=== PATIENT | male | born 1985 | race Caucasian/White ===

== ENCOUNTER 2023-03-20 18:35 | Emergency (ER) | payer MEDICAID ==
[~2023-03-20] VITALS: Ht 170.2 cm; Wt 93.0 kg
[2023-03-20 19:04] VITALS: BP 143/95; TEMP 98.2; O2SAT 96
--- NOTE | 2023-03-20 19:04 | NUR ---
BIBFAMILY C/O COUGH AND CONGESTION. SATTING WELL ON 97% WITH NO RESP DISTRESS. SAFETY MEASURES IN PLACE.
[2023-03-20] MEDS ORDERED: BENZONATATE 100 MG CAPSULE PO PRN (20:00)
[2023-03-20] MEDS ORDERED: BENZONATATE 100 MG CAPSULE PO ONE (20:09)
[2023-03-20] MEDS ORDERED: ALBU8.5H8 INH (20:32)
--- NOTE | 2023-03-20 20:35 | NUR ---
Patient discharged to home in stable condition. Written and verbal after care instructions given. Patient verbalizes understanding of instruction.
== END 2023-03-20 20:36 | disposition home or self-care (01) ==
LOC: ER 18:48
DX: R05.9 Cough, unspecified (principal)
CPT/HCPCS: 71045-TC